=== PATIENT | male | born 1930 | race Asian ===

== ENCOUNTER 2018-07-10 19:03 | Inpatient (IN) | payer MEDICARE, OTHER ==
[~2018-07-10] VITALS: Ht 167.6 cm; Wt 66.2 kg
[2018-07-10 19:10] VITALS: BP 142/56
--- NOTE | 2018-07-10 19:13 | Emergency Room Report ---
History of Present Illness General Chief Complaint: Multiple Trauma/Fall Source: Family Member, EMS Present Illness HPI Patient is an 87-year-old male who presented after a fall 2 days ago. Patient been unable to ambulances fall. He reports having increased pain to his right hip as well as his right elbow. The patient denies loss of consciousness. He reports having a pain to the right elbow as well as the right hip. He denies any knee or foot pain. Allergies: Coded Allergies: No Known Allergies (Unverified , 07/10/18) Patient History Past Medical History: unable to obtain Reviewed Nursing Documentation: PMH: Agreed; PSxH: Agreed Nursing Documentation-PM Past Medical History: No History, Except For Hx Cardiac Problems: Yes - Arrhythmia Hx Hypertension: Yes Review of Systems All Other Systems: limited - by poor historian Physical Exam Vital Signs Date Time Temp Pulse Resp B/P (MAP) Pulse Ox O2 Delivery O2 Flow Rate FiO2 07/10/18 19:06 98.1 72 16 161/84 99 Room Air Sp02 EP Interpretation: reviewed, normal General Appearance: normal inspection, alert, no apparent distress, GCS 15 Head: normocephalic, atraumatic Eyes: normal eye exam, PERRL, EOMI, lids + conjunctiva normal, no hyphema, no racoon eyes ENT: normal ENT inspection, TMs + canals normal, oropharynx normal, no recinos signs Neck: normal inspection, supple/symm/no masses, trach midline, no bony tend Respiratory: effort normal, no retractions, clear to auscultation, chest symmetrical, palpation of chest normal, speaking in full sentences Cardiovascular: regular rate, rhythm, no JVD Cardiovascular #2: 2+ radial (R), 2+ radial (L), 2+ dorsalis pedis (R), 2+ dorsalis pedis (L) Gastrointestinal: normal inspection, non-tender, non-distended, no rebound/ guarding, normal bowel sounds Genitourinary: normal inspection Musculoskeletal: normal ROM, other - right lower extremity shortening, external rotation Skin: other - swelling to right elbow and right knee Lymphatic: normal inspection Neurologic: normal inspection, CN II-XII intact, sensory intact, normal speech Psychiatric: normal inspection, memory normal, mood normal, no suicidal/ homicidal ideation Medical Decision Making Diagnostic Impression: Primary Impression: Fall Additional Impressions: Hip fracture Elbow contusion Knee contusion ER Course Patient presented for hip pain after a fall. Differential diagnoses included was not limited to fracture, dislocation, contusion, arthritis among others.Because of complexity of patient's case laboratory testing and imaging studies were ordered.X-ray imaging of the right hip CT imaging of the right hip showed the fracture into the femoral neck have which is unclear acute or chronic or acute on chronic. The x-ray of the right elbow read by radiology showed no fracture. X-ray of the right knee read by radiology showed no evidence of fracture. The patient was discussed with Dr. Vivek Schultz for orthopedic consult. Dr. Tyler Rodriguez was contacted for inpatient management due to panel physician Labs Test 07/10/18 19:39 07/11/18 07:10 Prothrombin Time 11.6 SEC (9.30-11.50) Prothromb Time International Ratio 1.1 (0.9-1.1) Activated Partial Thromboplast Time 28 SEC (23-33) Total Bilirubin 1.9 MG/DL (0.2-1.0) Direct Bilirubin 0.4 MG/DL (0.0-0.3) Aspartate Amino Transf (AST/SGOT) 22 U/L (15-37) Alanine Aminotransferase (ALT/SGPT) 22 U/L (12-78) Alkaline Phosphatase 76 U/L (46-116) Troponin I 0.044 ng/mL (0.000-0.056) Total Protein 7.1 G/DL (6.4-8.2) Albumin 3.5 G/DL (3.4-5.0) Globulin 3.6 g/dL Albumin/Globulin Ratio 1.0 (1.0-2.7) White Blood Count 9.9 K/UL (4.8-10.8) Red Blood Count 3.79 M/UL (4.70-6.10) Hemoglobin 12.1 G/DL (14.2-18.0) Hematocrit 34.5 % (42.0-52.0) Mean Corpuscular Volume 91 FL (80-99) Mean Corpuscular Hemoglobin 32.0 PG (27.0-31.0) Mean Corpuscular Hemoglobin Concent 35.2 G/DL (32.0-36.0) Red Cell Distribution Width 10.7 % (11.6-14.8) Platelet Count 108 K/UL (150-450) Mean Platelet Volume 6.6 FL (6.5-10.1) Neutrophils (%) (Auto) % (45.0-75.0) Lymphocytes (%) (Auto) % (20.0-45.0) Monocytes (%) (Auto) % (1.0-10.0) Eosinophils (%) (Auto) % (0.0-3.0) Basophils (%) (Auto) % (0.0-2.0) Differential Total Cells Counted 100 Neutrophils % (Manual) 89 % (45-75) Lymphocytes % (Manual) 7 % (20-45) Monocytes % (Manual) 1 % (1-10) Eosinophils % (Manual) 3 % (0-3) Basophils % (Manual) 0 % (0-2) Band Neutrophils 0 % (0-8) Platelet Estimate Decreased Platelet Morphology Normal Red Blood Cell Morphology Normal Sodium Level 137 MMOL/L (136-145) Potassium Level 4.1 MMOL/L (3.5-5.1) Chloride Level 104 MMOL/L (98-107) Carbon Dioxide Level 25 MMOL/L (21-32) Anion Gap 8 mmol/L (5-15) Blood Urea Nitrogen 28 mg/dL (7-18) Creatinine 0.9 MG/DL (0.55-1.30) Estimat Glomerular Filtration Rate mL/min (>60) Glucose Level 121 MG/DL (74-106) Calcium Level 8.6 MG/DL (8.5-10.1) Last Vital Signs Date Time Temp Pulse Resp B/P (MAP) Pulse Ox O2 Delivery O2 Flow Rate FiO2 07/10/18 19:06 98.1 72 16 161/84 99 Room Air Status: unchanged Disposition: ADMITTED INPATIENT Condition: Serious Sung Nguyen MD Jul 10, 2018 19:13
[2018-07-10] MEDS ORDERED: ASPIR 8181 MG ORAL (19:15)
[2018-07-10] MEDS ORDERED: Morphine Sulfate 2mg/ml Inj IVP ONE (19:30)
--- NOTE | 2018-07-10 20:09 | Diagnostic Imaging Report ---
EXAM: XR Right Knee, 3 views CLINICAL HISTORY: PAIN, status post fall TECHNIQUE: Three views of the right knee. COMPARISON: No relevant prior studies available. FINDINGS: Bones/joints: Small osteophytes about the patella. No acute fracture. No dislocation. Soft tissues: Unremarkable. IMPRESSION: No definite plain film evidence for acute fracture or dislocation. If there is continued clinical concern for fracture, consider CT or MRI for further evaluation.
--- NOTE | 2018-07-10 20:13 | Diagnostic Imaging Report ---
EXAM: XR Right Elbow Complete, 3 or More Views CLINICAL HISTORY: PAIN, status post fall TECHNIQUE: Frontal, lateral and oblique views of the right elbow. COMPARISON: No relevant prior studies available. FINDINGS: Bones/joints: A small 5 mm ossific density is projected just superior to the radial head on the lateral view. This may be related to chronic changes such as an old fracture or degenerative changes. A small acute fracture fragment cannot entirely be excluded. There is however no definite plain film evidence for significant elbow joint effusion to suggest an acute process. Degenerative changes of the elbow manifested by osteophytes. No plain film evidence for dislocation. Soft tissues: Unremarkable. IMPRESSION: A small 5 mm ossific density is projected just superior to the radial head on the lateral view. This may be related to chronic changes such as an old fracture or degenerative changes. A small acute fracture fragment cannot entirely be excluded. There is however no definite plain film evidence for significant elbow joint effusion to suggest an acute process.
--- NOTE | 2018-07-10 20:21 | Diagnostic Imaging Report ---
EXAM: CT Right Lower Extremity Without Intravenous Contrast, Hip CLINICAL HISTORY: PAIN, status post fall TECHNIQUE: Axial computed tomography images of the right hip without intravenous contrast. CTDI is 0.25, 12.68 mGy and DLP is 421 mGy-cm. One or more of the following dose reduction techniques were used: automated exposure control, adjustment of the mA and/or kV according to patient size, use of iterative reconstruction technique. COMPARISON: No relevant prior studies available. FINDINGS: Bones/joints: Fracture of the right femoral neck. It is unclear if this is acute, chronic, or acute on chronic. Small ossific densities are seen along the inferior medial aspect of the right femoral head which are likely related to small fracture fragments. Degenerative changes of the lower lumbar spine. Some spinal canal stenosis is also suspected. This could better be evaluated with MRI. Osteopenia is noted which decreases the sensitivity for detection of fracture. No evidence for dislocation. Soft tissues: Some edema is seen in the soft tissues adjacent to the right hip. Vasculature: Vascular atherosclerotic calcifications. Bowel: The visualized portions of the bowel are grossly unremarkable. Appendix: The appendix is not clearly identified. Bladder: The bladder is grossly unremarkable. Reproductive: Prominence of the prostate gland. IMPRESSION: 1. Fracture of the right femoral neck. It is unclear if this is acute, chronic, or acute on chronic. 2. Small ossific densities are seen along the inferior medial aspect of the right femoral head which are likely related to small fracture fragments. 3. Degenerative changes of the lower lumbar spine. Some spinal canal stenosis is also suspected. This could better be evaluated with MRI. 4. Osteopenia.
[2018-07-10 20:25] LABS: HEMATOCRIT 38.2 % (42.0-52.0); HEMOGLOBIN 13.3 G/DL (14.2-18.0); MEAN CORPUSCULAR VOLUME 92 FL (80-99); PLATELET COUNT 121 K/UL (150-450); RED BLOOD COUNT 4.15 M/UL (4.70-6.10); RED CELL DISTRIBUTION WIDTH 11.1 % (11.6-14.8); WHITE BLOOD COUNT 12.3 K/UL (4.8-10.8)
[2018-07-10 20:29] LABS: ANION GAP 9 mmol/L (5-15); BLOOD UREA NITROGEN 30 mg/dL (7-18); CALCIUM 8.8 MG/DL (8.5-10.1); CARBON DIOXIDE 29 MMOL/L (21-32); CHLORIDE 101 MMOL/L (98-107); CREATININE 1.1 MG/DL (0.55-1.30); POTASSIUM 3.4 MMOL/L (3.5-5.1); SODIUM 139 MMOL/L (136-145)
[2018-07-10 20:32] LABS: INR 1.1 (0.9-1.1)
[2018-07-10 20:40] LABS: ALANINE AMINOTRANSFERASE 22 U/L (12-78); ALBUMIN 3.5 G/DL (3.4-5.0); ALKALINE PHOSPHATASE 76 U/L (46-116); ASPARTATE AMINO TRANSFERASE 22 U/L (15-37); BILIRUBIN,TOTAL 1.9 MG/DL (0.2-1.0)
[2018-07-10 20:41] LABS: BILIRUBIN,DIRECT 0.4 MG/DL (0.0-0.3)
[2018-07-10] MEDS ORDERED: Morphine Sulfate 2mg/ml Inj IVP PRN (21:15)
[2018-07-10 22:00] VITALS: BP 145/58
[2018-07-10] MEDS: Enoxaparin 40mg Inj SUBQ SCH (23:01)
[2018-07-11] VITALS: BP 153/84
[2018-07-11 04:00] VITALS: BP 126/77
[2018-07-11 08:00] VITALS: BP 156/79
[2018-07-11 08:19] LABS: HEMATOCRIT 34.5 % (42.0-52.0); HEMOGLOBIN 12.1 G/DL (14.2-18.0); MEAN CORPUSCULAR VOLUME 91 FL (80-99); PLATELET COUNT 108 K/UL (150-450); RED BLOOD COUNT 3.79 M/UL (4.70-6.10); RED CELL DISTRIBUTION WIDTH 10.7 % (11.6-14.8); WHITE BLOOD COUNT 9.9 K/UL (4.8-10.8)
[2018-07-11] MEDS: Aspirin Baby 81mg ORAL SCH (08:38)
[2018-07-11 08:47] LABS: ANION GAP 8 mmol/L (5-15); BLOOD UREA NITROGEN 28 mg/dL (7-18); CALCIUM 8.6 MG/DL (8.5-10.1); CARBON DIOXIDE 25 MMOL/L (21-32); CHLORIDE 104 MMOL/L (98-107); CREATININE 0.9 MG/DL (0.55-1.30); POTASSIUM 4.1 MMOL/L (3.5-5.1); SODIUM 137 MMOL/L (136-145)
[2018-07-11] MEDS ORDERED: Pneumococcal Vaccine 25mcg/0.5ml IM ONE (10:00)
[2018-07-11 12:00] VITALS: BP 128/68
--- NOTE | 2018-07-11 13:15 | History and Physical Report ---
DATE OF ADMISSION: 07/10/2018 REASON FOR ADMISSION: Right hip fracture. HISTORY OF PRESENT ILLNESS: The patient is an 87-year-old [place] gentleman, who does not speak [place]. Seemingly, the patient had fallen two days ago and was complaining of right hip and elbow pain. In the emergency room, imaging studies were conducted of his right hip and the patient was noted to have a right femoral neck fracture and as such, the patient was admitted for further evaluation and care and Orthopedics were consulted. ALLERGIES: No known drug allergies. PAST MEDICAL HISTORY: Unknown. PAST SURGICAL HISTORY: Unknown. REVIEW OF SYSTEMS: The patient does not speak [place], but is in no apparent distress. LABORATORY DATA: Laboratories dated July 10, 2018, sodium 139, potassium 3.4, BUN 30, creatinine 1.1, glucose 190, calcium 8.8. Hemoglobin 13.3, white cell count 12.3, and platelet count 121. PHYSICAL EXAMINATION: VITAL SIGNS: Blood pressure 153/84, respiratory rate 18, pulse 63, temperature 98.0, and 98% oxygen saturation on room air. GENERAL: The patient awake, alert, in no overt distress. HEENT: Extraocular muscles intact. No lymphadenopathy noted. CARDIOVASCULAR: S1, S2. No rubs or gallops. PULMONARY: Clear to auscultation bilaterally. No rales, rhonchi or wheezes. ABDOMEN: Nondistended and nontender. EXTREMITIES: No edema. ASSESSMENT AND PLAN: 1. Hypertension. At this time, the patient was placed on Norvasc with p.r.n. hydralazine. 2. DVT prophylaxis with Lovenox subcutaneous. 3. Right femoral neck fracture. Dr. Schultz, Orthopedics has been consulted. At this time, the patient will be treated medically and prepared for discharge once Orthopedic evaluates and makes recommendations. Tyler Mantilla MD DR: EUFEMIA/KASI JOB#: [id number] CC:
--- NOTE | 2018-07-11 14:58 | Cardiology Report ---
APPROVED REPORT EKG Measurement Heart [id number] Sinus rhythm with 1st degree AV block with occasional premature ventricular complexes Incomplete right bundle branch block Nonspecific ST and T wave abnormality Abnormal ECG
[2018-07-11 16:00] VITALS: BP 129/71
--- NOTE | 2018-07-11 17:04 | Consultation ---
History of Present Illness General Date patient seen: Jul 11, 2018 Time patient seen: 16:58 Chief Complaint: Multiple Trauma/Fall Present Illness HPI 87 year old male Pt BIBA from home due to right hip pain, he fell from ground level, hit right hip and right elbow. Right leg is shorter than left leg when extended foot is rotated outward. Pt elbow and wrist has a bruise. No chest pain or SOB. Plan for surgery, cardiology consulted for clearance. Initial troponin normal, EKG no ischemia. Plan for right hip hemiarthroplasty" to be done on Friday evening 07/13/18 Allergies: Coded Allergies: No Known Allergies (Unverified , 07/10/18) Medication History Scheduled Aspirin* (Aspir 81*), 81 MG ORAL DAILY, (Reported) Patient History Healthcare decision maker Resuscitation status Full Code Advanced Directive on File Review of Systems Constitutional: Reports: no symptoms Eye: Reports: no symptoms ENT: Reports: no symptoms Respiratory: Reports: no symptoms Cardiovascular: Reports: no symptoms Gastrointestinal: Reports: no symptoms Genitourinary: Reports: no symptoms Musculoskeletal: Reports: joint pain, joint swelling Skin: Reports: no symptoms Psychiatric: Reports: no symptoms Neurological: Reports: no symptoms Endocrine: Reports: no symptoms Hematologic/Lymphatic: Reports: no symptoms Physical Exam General Appearance: no apparent distress, alert Lines, tubes and drains: peripheral HEENT: normocephalic, atraumatic Neck: non-tender, normal alignment, supple, normal inspection, abnormal alignment Respiratory/Chest: chest wall non-tender, lungs clear Cardiovascular/Chest: normal peripheral pulses, normal rate, regular rhythm Abdomen: normal bowel sounds, non tender Extremities: normal range of motion, non-tender Skin Exam: normal pigmentation, warm/dry 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 normal, abnormal gait, oriented x 3, motor weakness Last 24 Hour Vital Signs Date Time Temp Pulse Resp B/P (MAP) Pulse Ox O2 Delivery O2 Flow Rate FiO2 07/11/18 16:00 97.5 62 22 129/71 (90) 94 07/11/18 12:00 97.7 62 20 128/68 (88) 97 07/11/18 12:00 60 07/11/18 10:03 Room Air 07/11/18 08:38 63 156/79 07/11/18 08:00 98.1 63 18 156/79 (104) 93 07/11/18 08:00 62 11/3/18 04:00 98.0 84 22 126/77 (93) 93 07/11/18 04:00 72 07/11/18 00:00 69 07/11/18 00:00 98.0 63 18 153/84 (107) 98 07/10/18 23:42 Room Air 07/10/18 22:15 98.1 60 16 108/57 99 Room Air 07/10/18 22:00 98.2 54 18 145/58 99 Room Air 07/10/18 19:10 72 16 Room Air 07/10/18 19:10 98.1 58 16 142/56 99 Room Air 07/10/18 19:06 98.1 72 16 161/84 99 Room Air Intake and Output 07/10/18 07/11/18 19:00 07:00 Output Total 300 ml Balance -300 ml Output Urine Total 300 ml Laboratory Tests Test 07/10/18 19:39 07/11/18 07:10 White Blood Count 12.3 K/UL (4.8-10.8) H 9.9 K/UL (4.8-10.8) Red Blood Count 4.15 M/UL (4.70-6.10) L 3.79 M/UL (4.70-6.10) L Hemoglobin 13.3 G/DL (14.2-18.0) L 12.1 G/DL (14.2-18.0) L Hematocrit 38.2 % (42.0-52.0) L 34.5 % (42.0-52.0) L Mean Corpuscular Volume 92 FL (80-99) 91 FL (80-99) Mean Corpuscular Hemoglobin 32.1 PG (27.0-31.0) H 32.0 PG (27.0-31.0) H Mean Corpuscular Hemoglobin Concent 34.9 G/DL (32.0-36.0) 35.2 G/DL (32.0-36.0) Red Cell Distribution Width 11.1 % (11.6-14.8) L 10.7 % (11.6-14.8) L Platelet Count 121 K/UL (150-450) L 108 K/UL (150-450) L Mean Platelet Volume 6.4 FL (6.5-10.1) L 6.6 FL (6.5-10.1) Neutrophils (%) (Auto) % (45.0-75.0) % (45.0-75.0) Lymphocytes (%) (Auto) % (20.0-45.0) % (20.0-45.0) Monocytes (%) (Auto) % (1.0-10.0) % (1.0-10.0) Eosinophils (%) (Auto) % (0.0-3.0) % (0.0-3.0) Basophils (%) (Auto) % (0.0-2.0) % (0.0-2.0) Differential Total Cells Counted 100 100 Neutrophils % (Manual) 91 % (45-75) H 89 % (45-75) H Lymphocytes % (Manual) 5 % (20-45) L 7 % (20-45) L Monocytes % (Manual) 3 % (1-10) 1 % (1-10) Eosinophils % (Manual) 1 % (0-3) 3 % (0-3) Basophils % (Manual) 0 % (0-2) 0 % (0-2) Band Neutrophils 0 % (0-8) 0 % (0-8) Platelet Estimate Decreased L Decreased L Platelet Morphology Normal Normal Red Blood Cell Morphology Normal Normal Prothrombin Time 11.6 SEC (9.30-11.50) H Prothromb Time International Ratio 1.1 (0.9-1.1) Activated Partial Thromboplast Time 28 SEC (23-33) Sodium Level 139 MMOL/L (136-145) 137 MMOL/L (136-145) Potassium Level 3.4 MMOL/L (3.5-5.1) L 4.1 MMOL/L (3.5-5.1) Chloride Level 101 MMOL/L (98-107) 104 MMOL/L (98-107) Carbon Dioxide Level 29 MMOL/L (21-32) 25 MMOL/L (21-32) Anion Gap 9 mmol/L (5-15) 8 mmol/L (5-15) Blood Urea Nitrogen 30 mg/dL (7-18) H 28 mg/dL (7-18) H Creatinine 1.1 MG/DL (0.55-1.30) 0.9 MG/DL (0.55-1.30) Estimat Glomerular Filtration Rate mL/min (>60) mL/min (>60) Glucose Level 190 MG/DL (74-106) H 121 MG/DL (74-106) H Calcium Level 8.8 MG/DL (8.5-10.1) 8.6 MG/DL (8.5-10.1) Total Bilirubin 1.9 MG/DL (0.2-1.0) H Direct Bilirubin 0.4 MG/DL (0.0-0.3) H Aspartate Amino Transf (AST/SGOT) 22 U/L (15-37) Alanine Aminotransferase (ALT/SGPT) 22 U/L (12-78) Alkaline Phosphatase 76 U/L (46-116) Troponin I 0.044 ng/mL (0.000-0.056) Total Protein 7.1 G/DL (6.4-8.2) Albumin 3.5 G/DL (3.4-5.0) Globulin 3.6 g/dL Albumin/Globulin Ratio 1.0 (1.0-2.7) Height (Feet): 5 Height (Inches): 6.00 Weight (Pounds): 146 Medications Current Medications Medications (Trade) Dose Ordered Sig/Laura Route PRN Reason Start Time Stop Time Status Last Admin Dose Admin Acetaminophen (Tylenol) 650 mg Q4H PRN ORAL Mild Pain (Pain Scale 1-3) 07/10/18 21:15 08/09/18 21:14 Amlodipine Besylate (Norvasc) 10 mg DAILY ORAL 07/11/18 09:00 08/10/18 08:59 07/11/18 08:38 Aspirin (ASA) 81 mg DAILY ORAL 07/11/18 09:00 08/10/18 08:59 07/11/18 08:38 Dextrose (Dextrose 50%) 25 ml Q30M PRN IV Hypoglycemia 07/10/18 21:15 08/09/18 21:14 Dextrose (Dextrose 50%) 50 ml Q30M PRN IV Hypoglycemia 07/10/18 21:15 08/09/18 21:14 Enoxaparin Sodium (Lovenox) 40 mg Q24H SUBQ 07/10/18 22:00 08/09/18 21:59 07/10/18 23:01 Famotidine (Pepcid) 40 mg DAILY ORAL 07/11/18 09:00 08/10/18 08:59 07/11/18 08:38 Hydralazine HCl (Apresoline) 10 mg Q4H PRN IV For SBP>150 07/11/18 06:45 08/10/18 06:44 Morphine Sulfate (Morphine Sulfate) 1 mg Q6H PRN IVP Moderate Pain (Pain Scale 4-6) 07/10/18 21:15 07/17/18 21:14 Sodium Chloride 1,000 ml @ 75 mls/hr [id number] IV 07/11/18 08:30 08/10/18 08:29 07/11/18 08:39 Tamsulosin HCl (Flomax) 0.4 mg BEDTIME ORAL 07/11/18 21:00 08/10/18 20:59 Assessment/Plan Status: stable Assessment/Plan Assessment: Hypertension Right femoral neck fracture Plan Proceed with surgery friday. No active cardiac conditions, no evidence of ischemia, no symptoms Continue norvasc for BP support IV fluids Pain control GI/DVT ppx Incentive spirometry Sanford Hsieh MD Jul 11, 2018 17:04
[2018-07-11 20:00] VITALS: BP 143/68
[2018-07-11] MEDS ORDERED: Tamsulosin 0.4mg cap ORAL SCH (21:00)
[2018-07-11] MEDS: Enoxaparin 40mg Inj SUBQ SCH (22:12)
[2018-07-12] VITALS: BP 126/57
[2018-07-12 08:00] VITALS: BP 125/72
--- NOTE | 2018-07-12 08:25 | Nephrology Progress Note ---
Assessment/Plan Assessment/Plan A/P 1) Right femoral neck fracture. Dr. Schultz, Orthopedics, surgery planned for am Cleared by cardiology 2) HTN- stable 3) DVT prophylaxsis- lovenox Subjective Date patient seen: Jul 12, 2018 Time patient seen: 08:21 ROS Limited/Unobtainable: No Allergies: Coded Allergies: No Known Allergies (Unverified , 07/10/18) All Systems: reviewed and negative except above Subjective Patient resting in no acute distress Objective Last 24 Hour Vital Signs Date Time Temp Pulse Resp B/P (MAP) Pulse Ox O2 Delivery O2 Flow Rate FiO2 07/12/18 08:00 97.7 71 18 125/72 (89) 96 07/12/18 00:00 96.9 79 20 126/57 (80) 100 07/12/18 00:00 79 07/11/18 21:00 Room Air 07/11/18 20:00 62 07/11/18 20:00 96.9 62 20 143/68 (93) 95 07/11/18 16:00 97.5 62 22 129/71 (90) 94 07/11/18 16:00 60 07/11/18 12:00 97.7 62 20 128/68 (88) 97 07/11/18 12:00 60 07/11/18 10:03 Room Air 07/11/18 08:38 63 156/79 Intake and Output 07/11/18 07/12/18 18:59 06:59 Output Total 500 ml 500 ml Balance -500 ml -500 ml Output Urine Total 500 ml 500 ml Height (Feet): 5 Height (Inches): 6.00 Weight (Pounds): 146 General Appearance: no apparent distress, alert EENT: normal ENT inspection Neck: normal alignment Cardiovascular: normal rate, regular rhythm Respiratory/Chest: lungs clear, normal breath sounds Abdomen: non tender, soft Edema: no edema noted Arm (L), no edema noted Arm (R), no edema noted Leg (L), no edema noted Leg (R), no edema noted Pedal (L), no edema noted Pedal (R), no edema noted Generalized Tyler Mantilla MD Jul 12, 2018 08:25
[2018-07-12] MEDS: Aspirin Baby 81mg ORAL SCH (08:32)
[2018-07-12 09:01] LABS: BASOPHILS % (AUTO) 0.6 % (0.0-2.0); EOSINOPHILS % (AUTO) 1.5 % (0.0-3.0); HEMATOCRIT 34.9 % (42.0-52.0); HEMOGLOBIN 12.1 G/DL (14.2-18.0); LYMPHOCYTES % (AUTO) 8.7 % (20.0-45.0); MEAN CORPUSCULAR VOLUME 90 FL (80-99); MONOCYTES % (AUTO) 9.4 % (1.0-10.0); NEUTROPHILS % (AUTO) 79.8 % (45.0-75.0); PLATELET COUNT 136 K/UL (150-450); RED BLOOD COUNT 3.88 M/UL (4.70-6.10); RED CELL DISTRIBUTION WIDTH 10.5 % (11.6-14.8); WHITE BLOOD COUNT 7.6 K/UL (4.8-10.8)
[2018-07-12 09:13] LABS: ANION GAP 4 mmol/L (5-15); BLOOD UREA NITROGEN 15 mg/dL (7-18); CALCIUM 8.3 MG/DL (8.5-10.1); CARBON DIOXIDE 26 MMOL/L (21-32); CHLORIDE 105 MMOL/L (98-107); CREATININE 0.8 MG/DL (0.55-1.30); POTASSIUM 4.3 MMOL/L (3.5-5.1); SODIUM 135 MMOL/L (136-145)
[2018-07-12 12:00] VITALS: BP 137/72
[2018-07-12 16:00] VITALS: BP 118/70
[2018-07-12] MEDS: Morphine Sulfate 2mg/ml Inj IVP PRN (19:53)
[2018-07-12 20:15] VITALS: BP 123/56
[2018-07-12] MEDS: Enoxaparin 40mg Inj SUBQ SCH (20:42)
[2018-07-12] MEDS: Tamsulosin 0.4mg cap ORAL SCH (21:08)
[2018-07-13] VITALS (13 sets, daily range): BP systolic 100–147; BP diastolic 56–89
[2018-07-13] MEDS: Morphine Sulfate 2mg/ml Inj IVP PRN ×3 (01:43→15:00)
[2018-07-13] MEDS ORDERED: Sterile Water Irrig 1000ml IRRIG ONE (08:00)
[2018-07-13] MEDS ORDERED: LR 1000ml ONE (08:00)
[2018-07-13] MEDS ORDERED: NS Irrig 1000ml ONE (08:00)
[2018-07-13] MEDS ORDERED: NS Irrig 2000ml IRRIG ONE (08:00)
[2018-07-13 08:03] LABS: ANION GAP 9 mmol/L (5-15); BLOOD UREA NITROGEN 13 mg/dL (7-18); CALCIUM 8.5 MG/DL (8.5-10.1); CARBON DIOXIDE 21 MMOL/L (21-32); CHLORIDE 106 MMOL/L (98-107); CREATININE 0.7 MG/DL (0.55-1.30); POTASSIUM 3.8 MMOL/L (3.5-5.1); SODIUM 136 MMOL/L (136-145)
[2018-07-13] MEDS: Aspirin Baby 81mg ORAL SCH (08:59)
--- NOTE | 2018-07-13 09:13 | Nephrology Progress Note ---
Assessment/Plan Assessment/Plan A/P 1) Right femoral neck fracture. Dr. Schultz, Orthopedics, surgery today at 6pm Cleared by cardiology DC once cleared by Ortho 2) HTN- stable 3) DVT prophylaxsis- lovenox Subjective Date patient seen: Jul 13, 2018 Time patient seen: 09:11 ROS Limited/Unobtainable: No Allergies: Coded Allergies: No Known Allergies (Unverified , 07/10/18) Subjective Patient resting. Surgery planned for later today Objective Last 24 Hour Vital Signs Date Time Temp Pulse Resp B/P (MAP) Pulse Ox O2 Delivery O2 Flow Rate FiO2 07/13/18 08:06 99 127/84 07/13/18 08:00 97.6 99 20 127/84 (98) 98 99 07/13/18 04:39 97.9 94 20 147/89 (108) 95 07/13/18 00:00 97.9 79 18 140/86 (104) 98 07/12/18 21:00 Room Air 07/12/18 20:15 97.5 52 18 123/56 (78) 96 07/12/18 16:00 97.3 73 18 118/70 (86) 97 07/12/18 12:00 98.0 70 18 137/72 (93) 98 Intake and Output 07/12/18 07/13/18 19:00 07:00 Intake Total 640 ml 930 ml Output Total 550 ml 400 ml Balance 90 ml 530 ml Intake Oral 490 ml 180 ml IV Total 150 ml 750 ml Output Urine Total 550 ml 400 ml # Voids 2 Laboratory Tests 07/13/18 07:02: Sodium Level 136, Potassium Level 3.8, Chloride Level 106, Carbon Dioxide Level 21, Anion Gap 9, Blood Urea Nitrogen 13, Creatinine 0.7, Estimat Glomerular Filtration Rate , Glucose Level 124H, Calcium Level 8.5 Height (Feet): 5 Height (Inches): 6.00 Weight (Pounds): 146 General Appearance: no apparent distress, alert EENT: normal ENT inspection Neck: normal alignment, supple Cardiovascular: normal rate, regular rhythm Respiratory/Chest: lungs clear, normal breath sounds Abdomen: non tender, soft Edema: no edema noted Arm (L), no edema noted Arm (R), no edema noted Leg (L), no edema noted Leg (R), no edema noted Pedal (L), no edema noted Pedal (R), no edema noted Generalized Tyler Mantilla MD Jul 13, 2018 09:13
--- NOTE | 2018-07-13 09:40 | Cardiology Progress Note ---
Assessment/Plan Status: stable Assessment/Plan Assessment/Plan Assessment: Hypertension Right femoral neck fracture Plan Proceed with surgery friday. No active cardiac conditions, no evidence of ischemia, no symptoms Continue norvasc for BP support IV fluids Pain control GI/DVT ppx Incentive spirometry Dispo planning per ortho Rehab vs home health Subjective Cardiovascular: Reports: no symptoms Respiratory: Reports: no symptoms Gastrointestinal/Abdominal: Reports: no symptoms Genitourinary: Reports: no symptoms Subjective No acute events, plan for surgery today, no pain, tolerating PO, no complaints, HDS Objective Last 24 Hour Vital Signs Date Time Temp Pulse Resp B/P (MAP) Pulse Ox O2 Delivery O2 Flow Rate FiO2 07/13/18 08:06 99 127/84 07/13/18 08:00 97.6 99 20 127/84 (98) 98 99 07/13/18 04:39 97.9 94 20 147/89 (108) 95 07/13/18 00:00 97.9 79 18 140/86 (104) 98 07/12/18 21:00 Room Air 07/12/18 20:15 97.5 52 18 123/56 (78) 96 07/12/18 16:00 97.3 73 18 118/70 (86) 97 07/12/18 12:00 98.0 70 18 137/72 (93) 98 General Appearance: no apparent distress, alert EENT: PERRL/EOMI, TMs normal, pharynx normal Neck: non-tender, normal alignment, supple, normal inspection, no JVD Rhythm: NSR, SB Cardiovascular: normal peripheral pulses, normal rate, regular rhythm Respiratory/Chest: chest wall non-tender, lungs clear, normal breath sounds Abdomen: normal bowel sounds, non tender, soft Extremities: normal range of motion, non-tender 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 normal, no motor/sensory deficits, abnormal gait Intake and Output 07/12/18 07/13/18 19:00 07:00 Intake Total 640 ml 930 ml Output Total 550 ml 400 ml Balance 90 ml 530 ml Intake Oral 490 ml 180 ml IV Total 150 ml 750 ml Output Urine Total 550 ml 400 ml # Voids 2 Laboratory Tests Test 07/13/18 07:02 Sodium Level 136 MMOL/L (136-145) Potassium Level 3.8 MMOL/L (3.5-5.1) Chloride Level 106 MMOL/L (98-107) Carbon Dioxide Level 21 MMOL/L (21-32) Anion Gap 9 mmol/L (5-15) Blood Urea Nitrogen 13 mg/dL (7-18) Creatinine 0.7 MG/DL (0.55-1.30) Estimat Glomerular Filtration Rate mL/min (>60) Glucose Level 124 MG/DL (74-106) H Calcium Level 8.5 MG/DL (8.5-10.1) Sanford Hsieh MD Jul 13, 2018 09:40
--- NOTE | 2018-07-13 12:28 | Anethesia Preoperative Eval ---
Anesthesia Pre-op PMH/ROS General Date of Evaluation: Jul 13, 2018 Time of Evaluation: 10:20 Anesthesiologist: Raymon ASA Score: ASA 2 Mallampati Score Class I : Soft palate, uvula, fauces, pillars visible Class II: Soft palate, uvula, fauces visible Class III: Soft palate, base of uvula visible Class IV: Only hard plate visible Mallampati Classification: Class II Surgeon: Antoine Diagnosis: Right femoral neck fracture Surgical Procedure: Hemiarthroplasty right hip Allergies: Coded Allergies: No Known Allergies (Unverified , 07/10/18) Medications: see eMAR Patient NPO?: Yes NPO Date: Jul 13, 2018 NPO Time: 07:30 Past Medical History Cardiovascular: Reports: HTN, 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 No known significant PMH except 1st degree AVB on EKG PSxH Narrative: Unknown at this time Anesthesia Pre-op Phys. Exam Physician Exam Last Vital Signs Date Time Temp Pulse Resp B/P (MAP) Pulse Ox O2 Delivery O2 Flow Rate FiO2 07/13/18 09:00 Room Air 07/13/18 08:06 99 127/84 07/13/18 08:00 97.6 20 98 Constitutional: NAD Neurologic: CN 2-12 intact Cardiovascular: RRR, no M/R/G Respiratory: CTA Gastrointestinal: S/NT/ND Airway Exam Mallampati Score: Class II MO: full ROM: full Teeth: intact Anesthesia Pre-op A/P Labs Chemistry Test 07/13/18 07:02 Sodium Level 136 MMOL/L (136-145) Potassium Level 3.8 MMOL/L (3.5-5.1) Chloride Level 106 MMOL/L (98-107) Carbon Dioxide Level 21 MMOL/L (21-32) Anion Gap 9 mmol/L (5-15) Blood Urea Nitrogen 13 mg/dL (7-18) Creatinine 0.7 MG/DL (0.55-1.30) Estimat Glomerular Filtration Rate mL/min (>60) Glucose Level 124 MG/DL (74-106) H Calcium Level 8.5 MG/DL (8.5-10.1) Studies Pre-op Studies: EKG - 1st degree block, IRBBB, SR Risk Assessment & Plan Assessment: 87 yo male without known significant PMH now for right hip hemiarthroplasty Plan: GA, LMA Status Change Before Surgery: No Pre-Antibiotics Drug: Ancef 2gm Given Within 1 Hr of Incision: Yes Time Given: 19:30 Eugene Ennis MD Jul 13, 2018 12:28
--- NOTE | 2018-07-13 12:29 | Immediate Post-Op Evaluation ---
Immediate Post-Op Evalulation Immediate Post-Op Evalulation Procedure: Right hip hemiarthroplasty Date of Evaluation: Jul 13, 2018 Time of Evaluation: 21:10 IV Fluids: 300 Estimated Blood Loss: 100 Blood Pressure Systolic: 124 Blood Pressure Diastolic: 71 Pulse Rate: 88 Respiratory Rate: 20 O2 Sat by Pulse Oximetry: 100 Temperature (Fahrenheit): 98.3 Pain Score (1-10): 0 Nausea: No Vomiting: No Complications No complication Patient Status: reacts, patent, none Hydration Status: adequate Drug: Ancef 2gm Given Within 1 Hr of Incision: Yes Time Given: 19:30 Eugene Ennis MD Jul 13, 2018 12:29
[2018-07-13] MEDS ORDERED: Ketorolac 30mg Inj ONE (17:04)
[2018-07-13] MEDS ORDERED: Bupivacaine w/Epi 0.25% 30ml Vial INJ ONE (17:04)
[2018-07-13] MEDS ORDERED: Kenalog-40 1ml Vial ONE (17:04)
[2018-07-13] MEDS ORDERED: NeoSporin Gu Irrig 1ml Amp IRRIG ONE (17:05)
[2018-07-13] MEDS ORDERED: Bacitracin 50000 Units Vial ONE (17:05)
[2018-07-13] MEDS ORDERED: LORazepam 1mg tab ORAL PRN (18:07)
[2018-07-13] MEDS: LORazepam Inj 2mg/ml 1ml IV PRN (18:15)
[2018-07-13] MEDS ORDERED: fentaNYL 100 mcg/2 mL IV ONE (18:35)
[2018-07-13] MEDS ORDERED: Midazolam 2mg/2ml Inj ONE (18:35)
[2018-07-13] MEDS ORDERED: Tranexamic Acid 1,000 MG in NS 65 ML IVPB ONE (18:50)
--- NOTE | 2018-07-13 19:18 | Pre-Procedure Note/Attestation ---
Pre-Procedure Note/Attestation Complete Prior to Procedure Planned Procedure: right Procedure Narrative: hip hemiarthroplasty Indications for Procedure Pre-Operative Diagnosis: right hip fracture Attestation I attest that I discussed the nature of the procedure; its benefits; risks and complications; and alternatives (and the risks and benefits of such alternatives ), prior to the procedure, with the patient (or the patient's legal circulation sales representative). I attest that, if there was a reasonable possibility of needing a blood transfusion, the patient (or the patient's legal circulation sales representative) was given the [facility] standardized written summary, pursuant to the [place]ita Blood Safety Act ([place] Health and Safety Code # 1645, as amended). I attest that I re-evaluated the patient just prior to the surgery and that there has been no change in the patient's H&P, except as documented below: Casey Schultz MD Jul 13, 2018 19:18
[2018-07-13] MEDS ORDERED: Propofol 200mg/20ml IV ONE (19:19)
--- NOTE | 2018-07-13 19:19 | Operative Note - PDOC ---
Operative Note Operative Note Pre-op Diagnosis: right hip fracture Procedure: right hip hemiarthroplasty Post-op Diagnosis: same as pre-op plus Operative Findings: consistent w/pre-op dx studies Anesthesia: general Specimen: none Complications: none Condition: stable Estimated Blood Loss: none Implant(s) used?: Yes Casey Schultz MD Jul 13, 2018 19:19
[2018-07-13] MEDS ORDERED: Milk of Magnesia 30ml Ud ORAL PRN (19:30)
[2018-07-13] MEDS ORDERED: Morphine Sulfate 2mg/ml Inj IVP PRN (19:32)
[2018-07-13] MEDS ORDERED: Morphine Sulfate 4mg/ml Inj (IV/IM USE ONLY) IVP PRN (19:32)
[2018-07-13] MEDS ORDERED: ePHEDrine 50mg/ml Inj ONE (20:09)
[2018-07-13] MEDS: Tamsulosin 0.4mg cap ORAL SCH (21:00)
--- NOTE | 2018-07-13 21:45 | Operative Note - Dictated ---
DATE OF OPERATION: 07/13/2018 NOTE: "POOR AUDIO QUALITY" PREOPERATIVE DIAGNOSIS: Right femoral neck fracture. POSTOPERATIVE DIAGNOSIS: Right femoral neck fracture. PROCEDURES: Right hip hemiarthroplasty. SURGEON: Casey Schultz M.D. ANESTHESIA: General. INDICATION FOR PROCEDURE: This is a pleasant 87-year-old gentleman, who has had mechanical fall, diagnosed with displaced femoral neck fracture, and indicated for operative fixation. Risks, limitations, expectations, and complications of procedure were discussed in detail. All questions were addressed with his son. DESCRIPTION OF PROCEDURE: After informed consent was obtained, the patient was brought to the operating room. The patient was placed under general anesthesia. The patient was then carefully placed in lateral decubits position. The right hip was prepped and draped in sterile manner. Time-out was performed. Ancef was administered. Posterolateral skin incision was then made. Fascia doug was incised. Piriformis and short external rotators were T'd. It was somewhat difficult to mobilize the femoral head. There was some scar tissue around the fracture site and callus. In situ neck cut was then made. Femoral head was removed and measured 50 mm. Sequential broaching up to 11.75 was performed. With the 11.75, a 0 head-neck combo was selected. Hip was reduced. It seemed to be slightly long. Therefore, -5 was selected. Hip was taken, flexed to 120 degrees, 90 degrees of flexion with internal rotation, external rotation was 60, flexion with external rotation was stable. Leg lengths appeared to be clinically equal. At this point, the instruments were removed. Portal sites were closed using 3-0 Monocryl sutures. Steri-Strips and a sterile dressing were applied. The patient was awoken and taken to recovery room with stable vital signs. ESTIMATED BLOOD LOSS: 50 mL. COMPLICATIONS: None. SPECIMENS: None. IMPLANTS: Include skelcast 11.75 femoral component with a 50 -5 bipolar head-neck combo. Casey Schultz M.D. DR: Jaleel JOB#: [id number] CC: KIAN
[2018-07-13] MEDS: Enoxaparin 40mg Inj SUBQ SCH (22:00)
--- NOTE | 2018-07-13 22:00 | Consultation ---
DATE OF CONSULTATION: 07/11/2018 ORTHOPEDIC CONSULTATION CONSULTING PHYSICIAN: Casey Schultz M.D. CHIEF COMPLAINT: Right hip pain. HISTORY OF PRESENT ILLNESS: This is an 87-year-old gentleman who was brought to the ER and diagnosed with right femoral neck fracture. Orthopedic consultation was obtained for further care and recommendation. The patient had a fall approximately 2 days prior. The patient denied having loss of consciousness. PAST MEDICAL HISTORY: Reviewed from the intake chart. SURGICAL HISTORY: Reviewed from the intake chart. MEDICATIONS: Reviewed from the intake chart. PHYSICAL EXAMINATION: GENERAL: Shows the patient is resting comfortably in exam bed. He is somewhat confused. VITAL SIGNS: Afebrile. Stable vital signs. MUSCULOSKELETAL: Right hip examination does elicit pain. DIAGNOSTIC DATA: Imaging studies of the hip showed displaced femoral neck fracture. ASSESSMENT: Right displaced femoral neck fracture. DISCUSSION: At this point, what we are going to do is go ahead and admit him to telemetry service for medical clearance. If he is medically cleared for surgery, we will proceed with surgery. Risks, limitations, expectations, and complications related to the procedure will be discussed with his son. All questions were addressed. Casey Schultz M.D. DR: Jaleel JOB#: [id number] CC:
--- NOTE | 2018-07-13 22:15 | Progress Note ---
DATE: 07/11/2018 CHIEF COMPLAINT: Right hip femoral neck fracture. HISTORY OF PRESENT ILLNESS: The patient had no issues overnight. He is still pretty confused. PHYSICAL EXAMINATION: VITAL SIGNS: Afebrile. Stable vital signs. MUSCULOSKELETAL: Right hip examination shows pain with internal and external rotation. Posterior calf is soft. Moderate ecchymosis over the right hip. ASSESSMENT: Right femoral neck fracture. DISCUSSION: At this point, he is going to be medically optimized. There is Neurology consultation as well as Cardiology consultation pending. If the patient is medically optimized, we will proceed with surgery. Risks, limitations, expectations, and complications of the procedure were discussed in detail. All questions were addressed. Casey Schultz M.D. DR: Jaleel JOB#: [id number] CC:
[2018-07-13] MEDS: D5 1/2NS w/KCl 20mEq 1,000 ML IV SCH ×2 (22:22→23:39)
--- NOTE | 2018-07-13 22:30 | Progress Note ---
DATE: 07/12/2018 CHIEF COMPLAINT: Right hip femoral neck fracture. HISTORY OF PRESENT ILLNESS: The patient had no issues overnight. He is still confused. No other issues overnight. PHYSICAL EXAMINATION: MUSCULOSKELETAL: Shows moderate ecchymosis over right hip. VITAL SIGNS: Afebrile. Stable vital signs. He has pain with internal and external rotation of the right leg. DISCUSSION: At this point, he is medically optimized for surgery. I believe there is Cardiology consultation pending for tomorrow. We will go ahead and wait for the final clearance and proceed with surgery tomorrow. He will be made n.p.o. after midnight in anticipation of surgery. DVT prophylaxis will be held. He will be maintained on SCDs. I have discussed the case of surgery with his son-in-law, Sanford. Risks, limitations, and expectations including leg-length discrepancy, instability, nerve or vessel damage, risk of anesthesia, dislocation, etc., were discussed in detail. All questions were addressed. Casey Schultz M.D. DR: Jaleel JOB#: [id number] CC:
[2018-07-13] MEDS ORDERED: ceFAZolin sod 2 GM in D5W 110 ML IV SCH (23:00)
[2018-07-13] MEDS: ceFAZolin 2gm/50ml Premix 50 ML IV SCH (23:38)
[2018-07-14] MEDS: LORazepam Inj 2mg/ml 1ml IV PRN (03:42)
[2018-07-14 04:16] VITALS: BP 113/65
[2018-07-14] MEDS: ceFAZolin 2gm/50ml Premix 50 ML IV SCH (06:38)
[2018-07-14] MEDS: Norco 5mg/325mg tab ORAL PRN (07:57)
[2018-07-14 07:59] LABS: BASOPHILS % (AUTO) 0.6 % (0.0-2.0); EOSINOPHILS % (AUTO) 1.5 % (0.0-3.0); HEMOGLOBIN 11.8 G/DL (14.2-18.0); LYMPHOCYTES % (AUTO) 8.1 % (20.0-45.0); MEAN CORPUSCULAR VOLUME 92 FL (80-99); MONOCYTES % (AUTO) 10.6 % (1.0-10.0); NEUTROPHILS % (AUTO) 79.3 % (45.0-75.0); PLATELET COUNT 173 K/UL (150-450); RED BLOOD COUNT 3.71 M/UL (4.70-6.10); RED CELL DISTRIBUTION WIDTH 11.2 % (11.6-14.8); WHITE BLOOD COUNT 7.7 K/UL (4.8-10.8)
[2018-07-14 08:06] VITALS: BP 130/76
[2018-07-14 08:19] LABS: ANION GAP 9 mmol/L (5-15); BLOOD UREA NITROGEN 13 mg/dL (7-18); CALCIUM 8.6 MG/DL (8.5-10.1); CARBON DIOXIDE 22 MMOL/L (21-32); CHLORIDE 106 MMOL/L (98-107); CREATININE 0.8 MG/DL (0.55-1.30); POTASSIUM 3.6 MMOL/L (3.5-5.1); SODIUM 137 MMOL/L (136-145)
[2018-07-14] MEDS: Docusate 100mg cap ORAL SCH ×3 (08:55→17:02)
[2018-07-14] MEDS: celeBREX 200mg Cap **SURGERY PATIENTS ONLY ORAL SCH (08:55)
[2018-07-14] MEDS: Aspirin Baby 81mg ORAL SCH (09:01)
--- NOTE | 2018-07-14 09:20 | Nephrology Progress Note ---
Assessment/Plan Assessment/Plan A/P 1) Right femoral neck fracture. S/P surgical correction DC to Rehab once cleared by Orthopedics 2) HTN- stable 3) DVT prophylaxsis- lovenox 4) Confusion- resolved. re-eval once awake and coherent Subjective Date patient seen: Jul 14, 2018 Time patient seen: 09:19 ROS Limited/Unobtainable: Yes Allergies: Coded Allergies: No Known Allergies (Unverified , 07/10/18) Subjective Patient resting. Was confused last nite. Sleeping currently Objective Last 24 Hour Vital Signs Date Time Temp Pulse Resp B/P (MAP) Pulse Ox O2 Delivery O2 Flow Rate FiO2 07/14/18 08:06 97.6 110 18 130/76 (94) 99 07/14/18 07:56 110 130/76 07/14/18 07:23 Room Air 07/14/18 04:16 98.2 90 18 113/65 (81) 96 07/13/18 23:52 97.9 84 17 118/69 (85) 96 07/13/18 22:06 97.7 88 18 115/64 (81) 96 07/13/18 21:40 98.3 89 23 103/63 98 Nasal Cannula 3 07/13/18 21:30 86 18 114/59 98 Nasal Cannula 3 07/13/18 21:20 89 18 100/63 100 Simple Mask 6 07/13/18 21:11 88 19 108/59 100 Simple Mask 6 07/13/18 21:06 89 18 111/63 100 Simple Mask 6 07/13/18 21:03 88 20 100 07/13/18 21:01 98.3 91 21 124/71 100 Simple Mask 6 07/13/18 21:00 Room Air 07/13/18 16:00 97.7 103 20 124/83 (97) 97 07/13/18 12:00 98.1 99 22 139/81 (100) 99 102 Intake and Output 07/13/18 07/14/18 19:00 07:00 Intake Total 1065.0 ml 1165 ml Output Total 400 ml 300 ml Balance 665.0 ml 865 ml Intake Oral 240 ml 240 ml IV Total 825.0 ml 925 ml Output Urine Total 400 ml 200 ml Estimated Blood Loss 100 ml # Voids 1 1 Laboratory Tests 07/14/18 06:40: White Blood Count 7.7, Red Blood Count 3.71L, Hemoglobin 11.8L, Hematocrit 34.0L , Mean Corpuscular Volume 92, Mean Corpuscular Hemoglobin 31.9H, Mean Corpuscular Hemoglobin Concent 34.8, Red Cell Distribution Width 11.2L, Platelet Count 173, Mean Platelet Volume 6.2L, Neutrophils (%) (Auto) 79.3H, Lymphocytes (%) (Auto) 8.1L, Monocytes (%) (Auto) 10.6H, Eosinophils (%) (Auto) 1.5, Basophils (%) (Auto) 0.6, Sodium Level 137, Potassium Level 3.6, Chloride Level 106, Carbon Dioxide Level 22, Anion Gap 9, Blood Urea Nitrogen 13, Creatinine 0.8, Estimat Glomerular Filtration Rate , Glucose Level 144H, Calcium Level 8.6 Height (Feet): 5 Height (Inches): 6.00 Weight (Pounds): 146 General Appearance: no apparent distress EENT: normal ENT inspection Neck: normal alignment, supple Cardiovascular: normal rate, regular rhythm Respiratory/Chest: lungs clear, normal breath sounds Abdomen: non tender, soft Edema: no edema noted Arm (L), no edema noted Arm (R), no edema noted Leg (L), no edema noted Leg (R), no edema noted Pedal (L), no edema noted Pedal (R), no edema noted Generalized Tyler Mantilla MD Jul 14, 2018 09:20
[2018-07-14 11:24] VITALS: BP 103/61
--- NOTE | 2018-07-14 11:41 | Diagnostic Imaging Report ---
Indication: Postop right hip replacement Findings: Single AP view of the pelvis was performed. Bipolar right hip hemiarthroplasty demonstrated. Alignment and position based on the single view is unremarkable. IMPRESSION: Status post right hip hemiarthroplasty
[2018-07-14 15:39] VITALS: BP 105/62
--- NOTE | 2018-07-14 18:28 | Cardiology Progress Note ---
Assessment/Plan Status: stable Assessment/Plan Assessment/Plan Assessment: Hypertension Right femoral neck fracture Plan Patient s/p surgery Pain control supportive care Incentive spirometry Continue norvasc for BP support IV fluids GI/DVT ppx Dispo planning per ortho Rehab vs home health Subjective Cardiovascular: Reports: no symptoms Respiratory: Reports: no symptoms Gastrointestinal/Abdominal: Reports: no symptoms Genitourinary: Reports: no symptoms Subjective s/p surgery, no acute events, pain controlled, worked with PT/OT Objective Last 24 Hour Vital Signs Date Time Temp Pulse Resp B/P (MAP) Pulse Ox O2 Delivery O2 Flow Rate FiO2 07/14/18 15:39 97.2 93 18 105/62 (76) 96 07/14/18 11:24 98.1 115 18 103/61 (75) 97 07/14/18 08:06 97.6 110 18 130/76 (94) 99 07/14/18 07:56 110 130/76 07/14/18 07:23 Room Air 07/14/18 04:16 98.2 90 18 113/65 (81) 96 07/13/18 23:52 97.9 84 17 118/69 (85) 96 07/13/18 22:06 97.7 88 18 115/64 (81) 96 07/13/18 21:40 98.3 89 23 103/63 98 Nasal Cannula 3 07/13/18 21:30 86 18 114/59 98 Nasal Cannula 3 07/13/18 21:20 89 18 100/63 100 Simple Mask 6 07/13/18 21:11 88 19 108/59 100 Simple Mask 6 07/13/18 21:06 89 18 111/63 100 Simple Mask 6 07/13/18 21:03 88 20 100 07/13/18 21:01 98.3 91 21 124/71 100 Simple Mask 6 07/13/18 21:00 Room Air General Appearance: no apparent distress, alert EENT: PERRL/EOMI, normal ENT inspection Neck: non-tender, normal alignment Rhythm: NSR Cardiovascular: normal peripheral pulses, normal rate, regular rhythm Respiratory/Chest: chest wall non-tender, lungs clear Abdomen: normal bowel sounds, non tender Extremities: normal range of motion, non-tender Neurologic: piano mover II-XII grossly normal, no motor/sensory deficits Intake and Output 07/13/18 07/14/18 18:59 06:59 Intake Total 1140.0 ml 1165 ml Output Total 400 ml 300 ml Balance 740.0 ml 865 ml Intake Oral 240 ml 240 ml IV Total 900.0 ml 925 ml Output Urine Total 400 ml 200 ml Estimated Blood Loss 100 ml # Voids 1 Laboratory Tests Test 07/14/18 06:40 White Blood Count 7.7 K/UL (4.8-10.8) Red Blood Count 3.71 M/UL (4.70-6.10) L Hemoglobin 11.8 G/DL (14.2-18.0) L Hematocrit 34.0 % (42.0-52.0) L Mean Corpuscular Volume 92 FL (80-99) Mean Corpuscular Hemoglobin 31.9 PG (27.0-31.0) H Mean Corpuscular Hemoglobin Concent 34.8 G/DL (32.0-36.0) Red Cell Distribution Width 11.2 % (11.6-14.8) L Platelet Count 173 K/UL (150-450) Mean Platelet Volume 6.2 FL (6.5-10.1) L Neutrophils (%) (Auto) 79.3 % (45.0-75.0) H Lymphocytes (%) (Auto) 8.1 % (20.0-45.0) L Monocytes (%) (Auto) 10.6 % (1.0-10.0) H Eosinophils (%) (Auto) 1.5 % (0.0-3.0) Basophils (%) (Auto) 0.6 % (0.0-2.0) Sodium Level 137 MMOL/L (136-145) Potassium Level 3.6 MMOL/L (3.5-5.1) Chloride Level 106 MMOL/L (98-107) Carbon Dioxide Level 22 MMOL/L (21-32) Anion Gap 9 mmol/L (5-15) Blood Urea Nitrogen 13 mg/dL (7-18) Creatinine 0.8 MG/DL (0.55-1.30) Estimat Glomerular Filtration Rate mL/min (>60) Glucose Level 144 MG/DL (74-106) H Calcium Level 8.6 MG/DL (8.5-10.1) Sanford Hsieh MD Jul 14, 2018 18:28
[2018-07-14] MEDS: Tamsulosin 0.4mg cap ORAL SCH (20:08)
[2018-07-14] MEDS: Enoxaparin 40mg Inj SUBQ SCH (20:09)
[2018-07-14 20:17] VITALS: BP 109/64
[2018-07-15 00:15] VITALS: BP 111/69
[2018-07-15] MEDS: Norco 5mg/325mg tab ORAL PRN (01:07)
[2018-07-15 04:25] VITALS: BP 93/57
[2018-07-15 08:00] VITALS: BP 91/53
--- NOTE | 2018-07-15 08:51 | Nephrology Progress Note ---
Assessment/Plan Assessment/Plan A/P 1) Right femoral neck fracture. S/P surgical correction DC to Rehab today 2) HTN- stable 3) DVT prophylaxsis- lovenox 4) Confusion- resolved Subjective Date patient seen: Jul 15, 2018 Time patient seen: 08:49 ROS Limited/Unobtainable: No Allergies: Coded Allergies: No Known Allergies (Unverified , 07/10/18) All Systems: reviewed and negative except above Subjective Patient resting. Confusion resolved. Daughter at bedside Objective Last 24 Hour Vital Signs Date Time Temp Pulse Resp B/P (MAP) Pulse Ox O2 Delivery O2 Flow Rate FiO2 07/15/18 08:00 97.6 89 16 91/53 (66) 97 07/15/18 04:25 98.0 90 19 93/57 (69) 96 07/15/18 00:15 97.4 92 16 111/69 (83) 97 07/14/18 21:00 Room Air 07/14/18 20:17 97.1 96 17 109/64 (79) 98 07/14/18 15:39 97.2 93 18 105/62 (76) 96 07/14/18 11:24 98.1 115 18 103/61 (75) 97 Intake and Output 07/14/18 07/15/18 19:00 07:00 Intake Total 1200 ml 240 ml Balance 1200 ml 240 ml Intake Oral 1200 ml 240 ml # Voids 2 2 Height (Feet): 5 Height (Inches): 6.00 Weight (Pounds): 146 General Appearance: no apparent distress, alert EENT: normal ENT inspection Neck: normal alignment, supple Cardiovascular: normal rate, regular rhythm Respiratory/Chest: lungs clear, normal breath sounds Abdomen: non tender, soft Edema: no edema noted Arm (L), no edema noted Arm (R), no edema noted Leg (L), no edema noted Leg (R), no edema noted Pedal (L), no edema noted Pedal (R), no edema noted Generalized Tyler Mantilla MD Jul 15, 2018 08:51
--- NOTE | 2018-07-15 08:52 | Discharge Instructions ---
Discharge Instructions Discharge Instructions Services at Discharge: day care Diet: 2 GM sodium (low sodium) Resume Normal Activity?: Yes Activity: light activity Follow Up Orders Continue home medications at discharge Discharge to rehabilitation center with Orthopedics rehab orders For Congestive Heart Failure Reminder Report to your physician any weight gain of 5 pounds or more in one week. Tyler Mantilla MD Jul 15, 2018 08:52
[2018-07-15] MEDS: Docusate 100mg cap ORAL SCH ×2 (09:38→13:37)
[2018-07-15] MEDS: Aspirin Baby 81mg ORAL SCH (09:39)
[2018-07-15] MEDS: celeBREX 200mg Cap **SURGERY PATIENTS ONLY ORAL SCH (09:39)
[2018-07-15 12:00] VITALS: BP 107/63
--- NOTE | 2018-07-15 14:53 | Cardiology Progress Note ---
Assessment/Plan Status: stable Assessment/Plan Assessment/Plan Assessment: Hypertension Right femoral neck fracture Plan Patient s/p surgery Pain control supportive care Incentive spirometry Continue norvasc for BP support IV fluids GI/DVT ppx Dispo planning per ortho Rehab vs home health Subjective Cardiovascular: Reports: no symptoms Respiratory: Reports: no symptoms Gastrointestinal/Abdominal: Reports: no symptoms Genitourinary: Reports: no symptoms Subjective s/p surgery, no acute events, pain controlled, worked with PT/OT Plan for discharge today Objective Last 24 Hour Vital Signs Date Time Temp Pulse Resp B/P (MAP) Pulse Ox O2 Delivery O2 Flow Rate FiO2 07/15/18 12:00 99.3 92 16 107/63 (78) 96 07/15/18 09:00 Room Air 07/15/18 09:00 89 91/53 07/15/18 08:00 97.6 89 16 91/53 (66) 97 07/15/18 04:25 98.0 90 19 93/57 (69) 96 07/15/18 00:15 97.4 92 16 111/69 (83) 97 07/14/18 21:00 Room Air 07/14/18 20:17 97.1 96 17 109/64 (79) 98 07/14/18 15:39 97.2 93 18 105/62 (76) 96 General Appearance: no apparent distress, alert EENT: PERRL/EOMI, normal ENT inspection, TMs normal Neck: non-tender, normal alignment, supple Rhythm: NSR Cardiovascular: normal peripheral pulses, normal rate, regular rhythm Respiratory/Chest: chest wall non-tender, lungs clear Abdomen: normal bowel sounds, non tender, soft Extremities: normal range of motion, non-tender Neurologic: rubberizing mechanic II-XII grossly normal Intake and Output 07/14/18 07/15/18 19:00 07:00 Intake Total 1200 ml 240 ml Balance 1200 ml 240 ml Intake Oral 1200 ml 240 ml # Voids 2 2 Sanford Hsieh MD Jul 15, 2018 14:53
[2018-07-15 16:00] VITALS: BP 104/67
--- NOTE | 2018-07-16 16:10 | Discharge Summary ---
Discharge Summary Discharge Summary _ DATE OF ADMISSION: 07/10/2018 DATE OF DISCHARGE: 07/15/2018 CONSULTANTS: Dr. Casey Hsieh BRIEF HOSPITAL COURSE: Patient is an 87-year-old Greek gentleman, who does not speak Malaysian. Seemingly, patient had fallen 2 days prior and was complaining of right hip and elbow pain. On evaluation at ED, CT imaging of the right hip showed fracture of the right femoral neck. Right knee x-ray was negative for fracture or dislocation. Right elbow x-ray showed a small 5 mm ossific density projected superior to the radial head on lateral view. May be related to chronic changes such as old fracture or degenerative changes. There was no definite plain film evidence for significant elbow joint effusion to suggest an acute process. He was then admitted for further evaluation and care and orthopedic consultation. He was seen by Dr Schultz. Imaging was reviewed. Patient had a right displaced femoral neck fracture. He was recommended surgical intervention. Needs medical clearance prior to surgery. He was given pain management. He was seen by piano mechanic. Troponin was negative. EKG without any evidence of ischemia. There was no active cardiac symptoms. He was cleared for surgery. On 07/13/2018, he underwent right hip hemiarthroplasty. He tolerated procedure well. Postoperatively, he was given pain management. He was given supportive care. He was encouraged use of incentive spirometry. He was given Norvasc for blood pressure support. He was placed on Lovenox for DVT prophylaxis. He was given PT mobility. He had an episode of confusion however resolved. Vitals were stable. He was eventually discharged to alf. FINAL DIAGNOSES: Right femoral neck fracture secondary to fall status post right hip hemiarthroplasty Hypertension Confusion/encephalopathy resolved DISPOSITION: Patient was discharged to [facility]. DISCHARGE MEDICATIONS: Refer to Discharge Medication List. I have been assigned to dictate discharge summary on this account, and I was not involved in the patient's management. Glo Ortiz NP Jul 16, 2018 16:10
== END 2018-07-15 16:10 | DRG 470 ==
LOC: EDBD 19:03 → EDBEDREQSVC 19:42 → EMR 20:37 → 2E 20:42 → EDBEDREQ 21:36 → 2E 07-12 04:14 → 3E 07-12 16:47
PROC: 0SRR0JZ Replacement of Right Hip Joint, Femoral Surface with Synthetic Substitute, Open Approach (ICD-10-PCS; principal; 2018-07-13 18:00)
DX: S72.001A Fracture of unspecified part of neck of right femur, initial encounter for closed fracture (principal); G93.40 Encephalopathy, unspecified; I10 Essential (primary) hypertension; W19.XXXA Unspecified fall, initial encounter; R41.0 Disorientation, unspecified; M25.521 Pain in right elbow
CPT/HCPCS: 36415; 72170; 80048; 80053; 82248; 84484; 85007; 85025; 85610; 85730; 86850; 86900; 86901; 93005; 94003; 94150; 96374; 99285; J2250; J2405; J8499